=== PATIENT | female | born 1990 | race Caucasian/White ===

== ENCOUNTER 2023-08-22 19:00 | Emergency (ER) | payer SELFPAY ==
[~2023-08-22] VITALS: Ht 167.6 cm; Wt 75.0 kg
[2023-08-22 19:08] VITALS: O2SAT 97
[2023-08-22 20:40] LABS: CLARITY URINE TURBID (CLEAR); COLOR URINE ORANGE (YELLOW); PROTEIN URINE NEGATIVE (NEGATIVE); SPECIFIC GRAVITY URINE 1.047 (1.005-1.030)
[2023-08-22 20:41] LABS: GLUCOSE URINE 2+ (NEGATIVE); KETONES URINE NEGATIVE (NEGATIVE); LEUKOCYTE ESTERASE URINE NEGATIVE (NEGATIVE); NITRITE URINE NEGATIVE (NEGATIVE); OCCULT BLOOD URINE NEGATIVE (NEGATIVE)
[2023-08-22 20:46] LABS: AMORPHOUS SEDIMENT URINE 4+ /lpf; BACTERIA URINE TRACE; SQUAMOUS EPITHELIAL CELL URINE 1+ /lpf (RARE/1+)
[2023-08-22] MEDS ORDERED: NITR100C MT (21:14)
[2023-08-22 21:34] VITALS: BP 156/89; PULSE 60; RESP 20; TEMP 98.9
== END 2023-08-22 21:37 | disposition home or self-care (01) ==
LOC: ER 19:00
DX: N39.0 Urinary tract infection, site not specified (principal); Z98.890 Other specified postprocedural states
CPT/HCPCS: 81003; 81025; 99283